=== PATIENT | male | born 1945 | race Two or more races ===

== ENCOUNTER 2021-12-26 09:45 | Inpatient (IN) | payer OTHER ==
[~2021-12-26] VITALS: Ht 152.4 cm; Wt 82.1 kg
[2021-12-26] MEDS ORDERED: NORVASC5 MG PO (14:28)
[2021-12-26] MEDS ORDERED: LIPITOR20 MG PO (14:28)
[2021-12-26] MEDS ORDERED: COZAAR100 MG PO (14:28)
[2021-12-26] MEDS ORDERED: TAMS0.4C PO (14:28)
[2021-12-26] MEDS ORDERED: CARAFATE1 GM PO (14:28)
[2021-12-26] MEDS ORDERED: RESTORA RX CAP1 EACH PO (14:29)
[2021-12-28] MEDS ORDERED: PANTOPRAZOLE SO40 MG (13:46)
[2021-12-28] MEDS ORDERED: ROSUVASTATIN CA20 MG (13:46)
[2021-12-28] MEDS ORDERED: MAXIMUM D3325 MCG (13:46)
[2021-12-28] MEDS ORDERED: LOSARTAN POTASS50 MG (13:46)
[2021-12-31] MEDS ORDERED: PERCOCET 5-3251 EACH PO (11:05)
[2021-12-31] MEDS ORDERED: LEVSIN/SL0.125 MG SL (11:06)
== END 2021-12-31 12:32 | disposition home or self-care (01) | DRG 330 ==
LOC: SURG 12-28 07:00 → O/R 12-28 10:22 → SURG 12-28 10:22
PROVIDERS: ADMIT Surgery; ATTEND Surgery
PROC: 0DBP4ZZ Excision of Rectum, Percutaneous Endoscopic Approach (ICD-10-PCS; 2021-12-28)
PROC: 07BC4ZZ Excision of Pelvis Lymphatic, Percutaneous Endoscopic Approach (ICD-10-PCS; 2021-12-28)
PROC: 0DJD8ZZ Inspection of Lower Intestinal Tract, Via Natural or Artificial Opening Endoscopic (ICD-10-PCS; 2021-12-28)
PROC: 0DTN4ZZ Resection of Sigmoid Colon, Percutaneous Endoscopic Approach (ICD-10-PCS; principal; 2021-12-28 07:00)
DX: C19 Malignant neoplasm of rectosigmoid junction (principal); K92.1 Melena; R19.4 Change in bowel habit; R59.0 Localized enlarged lymph nodes; I11.9 Hypertensive heart disease without heart failure; Z20.822 Contact with and (suspected) exposure to COVID-19

== ENCOUNTER 2022-02-12 09:02 | Day surgery (SDC) | payer OTHER ==
[~2022-02-12 09:02] MED LIST: CARAFATE1 GM PO; COZAAR100 MG PO; LEVSIN/SL0.125 MG SL; LIPITOR20 MG PO; LOSARTAN POTASS50 MG; MAXIMUM D3325 MCG; NORVASC5 MG PO; PANTOPRAZOLE SO40 MG; PERCOCET 5-3251 EACH PO; RESTORA RX CAP1 EACH PO; ROSUVASTATIN CA20 MG; TAMS0.4C PO
[2022-02-12] MEDS ORDERED: ULTRACET PO (10:44)
== END 2022-02-12 14:45 | disposition home or self-care (01) ==
LOC: CIR.AMB 09:02
PROVIDERS: ATTEND Surgery
DX: C18.7 Malignant neoplasm of sigmoid colon (principal); Z20.822 Contact with and (suspected) exposure to COVID-19; I10 Essential (primary) hypertension; N40.0 Benign prostatic hyperplasia without lower urinary tract symptoms

== ENCOUNTER 2022-03-17 08:41 | Inpatient (IN) | payer OTHER ==
[~2022-03-17] VITALS: Ht 177.8 cm; Wt 81.6 kg
[~2022-03-17 08:41] MED LIST changes: +ULTRACET PO
[2022-03-17] MEDS ORDERED: CARAFATE1 GM PO (09:10)
[2022-03-19] MEDS ORDERED: ONDANSETRON4 MG/2 M5 (15:43)
[2022-03-19] MEDS ORDERED: RESTORA RX CAP1 EACH (15:43)
[2022-03-19] MEDS ORDERED: LOSARTAN POTAS100 MG (15:43)
[2022-03-19] MEDS ORDERED: FLUOROURAC1 GM/20 ML (15:43)
[2022-03-19] MEDS ORDERED: ROSUVASTATIN CA20 MG (15:43)
[2022-03-19] MEDS ORDERED: LEUCOVORIN CAL200 MG (15:43)
[2022-03-19] MEDS ORDERED: DIPHENHYDR50 MG/1 M1 (15:43)
[2022-03-19] MEDS ORDERED: DEXAMETHASO4 MG/1 M1 (15:43)
== END 2022-03-21 10:51 | disposition home or self-care (01) | DRG 641 ==
LOC: ER 08:41 → SURH 20:23
PROVIDERS: ADMIT Internal Medicine; ATTEND Internal Medicine
PROC: BW21YZZ Computerized Tomography (CT Scan) of Abdomen and Pelvis using Other Contrast (ICD-10-PCS; principal; 2022-03-17)
DX: E86.0 Dehydration (principal); K52.1 Toxic gastroenteritis and colitis; C19 Malignant neoplasm of rectosigmoid junction; E87.6 Hypokalemia; K57.30 Diverticulosis of large intestine without perforation or abscess without bleeding; T45.1X5A Adverse effect of antineoplastic and immunosuppressive drugs, initial encounter; E87.8 Other disorders of electrolyte and fluid balance, not elsewhere classified; E78.5 Hyperlipidemia, unspecified; K21.9 Gastro-esophageal reflux disease without esophagitis; Z20.822 Contact with and (suspected) exposure to COVID-19; N40.0 Benign prostatic hyperplasia without lower urinary tract symptoms; I11.9 Hypertensive heart disease without heart failure

== ENCOUNTER → 2022-09-02 | Emergency (ER) | payer OTHER ==
[~2022-09-02] VITALS: Ht 177.8 cm; Wt 86.2 kg
[~2022-09-02] MED LIST changes: +DEXAMETHASO4 MG/1 M1; +DIPHENHYDR50 MG/1 M1; +FLUOROURAC1 GM/20 ML; +LEUCOVORIN CAL200 MG; +LOSARTAN POTAS100 MG; +ONDANSETRON4 MG/2 M5; +RESTORA RX CAP1 EACH
== END | disposition home or self-care (01) ==
LOC: ER 16:41
DX: K40.90 Unilateral inguinal hernia, without obstruction or gangrene, not specified as recurrent (principal); I10 Essential (primary) hypertension; Z88.8 Allergy status to other drugs, medicaments and biological substances

== ENCOUNTER 2023-04-08 09:34 | Emergency (ER) | payer OTHER ==
[~2023-04-08] VITALS: Ht 177.8 cm; Wt 86.2 kg
[2023-04-08] MEDS ORDERED: AMLODIPINE-OLM1 EACH (10:12)
[2023-04-08 13:25] LABS: HEMATOCRIT 46.8 % (39.0-48.0); HEMOGLOBIN 16.2 g/dL (13-16.00); MEAN CELL VOLUME 91.1 fL (80.0-100.00); MEAN CORPUSCULAR HEMOGLOBIN 31.5 pg (27.00-32.0); MEAN CORPUSCULAR HGB CONC 34.6 g/dl (32.0-36.0); PLATELET COUNT 218 K/uL (150-450); RED BLOOD COUNT 5.14 M/uL (4.00-6.00); RED CELL DISTRIBUTION WIDTH 13.2 % (11.5-14.5)
[2023-04-08 13:38] LABS: AMYLASE 60 U/L (25-115); LIPASE 28 U/L (13-75)
[2023-04-08 13:44] LABS: ALBUMIN 4.3 gm/dL (3.4-5.0); BILIRUBIN TOTAL 3.08 mg/dL (0.3-1.2); CALCIUM 9.5 mg/dL (8.5-10.1); CREATININE SERUM 1.03 mg/dL (0.70-1.30); GFR 70.4; GLOBULINA 3.4 G/DL (2.4-3.5); POTASSIUM 3.38 mEq/L (3.5-5.1); TOTAL PROTEIN 7.7 gm/dL (6.4-8.2)
== END 2023-04-08 17:27 | disposition home or self-care (01) ==
LOC: ER 09:34
PROVIDERS: Emergency Medicine
DX: K40.90 Unilateral inguinal hernia, without obstruction or gangrene, not specified as recurrent (principal); Z85.038 Personal history of other malignant neoplasm of large intestine; I10 Essential (primary) hypertension
CPT/HCPCS: 36415; 74019; 96365; 99284; J2405; J7030

== ENCOUNTER 2023-06-10 06:25 | Day surgery (SDC) | payer OTHER ==
[2023-06-06 13:37] LABS: HEMATOCRIT 39.8 % (39.0-48.0); HEMOGLOBIN 13.8 g/dL (13-16.00); MEAN CELL VOLUME 91.7 fL (80.0-100.00); MEAN CORPUSCULAR HEMOGLOBIN 31.8 pg (27.00-32.0); MEAN CORPUSCULAR HGB CONC 34.7 g/dl (32.0-36.0); PLATELET COUNT 220 K/uL (150-450); RED BLOOD COUNT 4.34 M/uL (4.00-6.00); RED CELL DISTRIBUTION WIDTH 13.3 % (11.5-14.5)
[2023-06-06 13:58] LABS: INR 0.98; PARTIAL THROMBOPLASTIN TIME 32.3 SECONDS (22.0-34.0); PROTHROMBIN TIME 10.3 SECONDS (9.0-11.5)
[2023-06-06 13:59] LABS: ALBUMIN 3.9 gm/dL (3.4-5.0); BILIRUBIN TOTAL 1.44 mg/dL (0.3-1.2); CREATININE SERUM 0.84 mg/dL (0.70-1.30); GFR 89.08; GLOBULINA 2.6 G/DL (2.4-3.5); POTASSIUM 3.39 mEq/L (3.5-5.1); TOTAL PROTEIN 6.5 gm/dL (6.4-8.2)
[~2023-06-10 06:25] MED LIST changes: +AMLODIPINE-OLM1 EACH; +ROSUVASTATIN CA20 MG PO
[2023-06-10] MEDS ORDERED: CEFAZOLIN SODIUM 1,000 MG VIAL ONE (08:38)
[2023-06-10] MEDS ORDERED: LIDOCAINE HCL 1% 200MG/20ML VIAL IJ ONE ×2 (08:40→09:15)
[2023-06-10] MEDS ORDERED: CEFAZOLIN SODIUM 1,000 MG VIAL IJ SCH (09:15)
[2023-06-10] MEDS ORDERED: TRAM1TAB98 PO (09:24)
== END 2023-06-10 11:30 | disposition home or self-care (01) ==
LOC: CIR.AMB 06:25
PROVIDERS: ATTEND Surgery
DX: C18.7 Malignant neoplasm of sigmoid colon (principal)